=== PATIENT | female | born 1985 | race Caucasian/White ===

== ENCOUNTER 2016-09-14 11:45 | Emergency (ER) | payer OTHER ==
[2016-09-14] MEDS ORDERED: IBUPROFEN 800 MG TABLET ONE (13:59)
[2016-09-14] MEDS ORDERED: DIPHENHYDRAMINE HCL 25 MG CAPSULE ONE (13:59)
[2016-09-14] MEDS ORDERED: ALBUTEROL/IPRATROPIUM 2.5/0.5 MG 3 ML/EACH DOSE ONE (14:18)
--- NOTE | 2016-09-14 15:18 | RAD ---
09/14/2016 3:14 PM CHEST - 2 VIEWS History: 3 days of cough Comparison: 06/03/2016 Findings: Two views of the chest are obtained. The lungs are clear with out effusion or pneumothorax. The cardiomediastinal silhouette is unremarkable.. The osseous structures are intact.. IMPRESSION: No acute intrathoracic process.
== END 2016-09-14 14:48 | disposition home or self-care (01) ==
LOC: ED 11:45 → EDSTATUS 11:47 → ED 14:48
DX: J06.9 Acute upper respiratory infection, unspecified (principal); J45.909 Unspecified asthma, uncomplicated; E66.9 Obesity, unspecified; Z68.43 Body mass index [BMI] 50.0-59.9, adult
CPT/HCPCS: 71020; 94640; 99283 ×2; A9270 ×2